=== PATIENT | male | born 1995 | race Two or more races ===

== ENCOUNTER 2018-08-13 23:08 | Emergency (ER) | payer OTHER ==
--- NOTE | 2018-08-13 23:23 | ED ---
GI/ HPI - HPI Summary HPI Summary: A 23 y/o male presents to [facility] with a chief complaint of vomiting today. At triage he rated his pain as a 6/10 in severity. He said that his stomach bloated at 15:30. The feeling went away but after eating the patient felt the stomach bloating and vomited with some heart burn. He felt fine in the morning. 1.5 years ago he had similar symptoms and went to PCP in [place] and said that it may be an ulcer in the duodenum and was given a prescription for Nexium. After several weeks his symptoms were alleviated. He took Nexium today. He denies any current pain, nausea or urinary symptoms. He denies any abdominal SHx. - History of Current Complaint Chief Complaint: EDNauseaVomitDiarrh Time Seen by Provider: 08/13/18 23:18 Stated Complaint: STOMACH BLOATING PER PT Hx Obtained From: Patient Onset/Duration: Started Hours Ago, Still Present Timing: Intermittent, Lasting Hours Severity: Moderate Current Severity: Moderate Pain Intensity: 6 - out of 10 Location of Pain: None - Allergy/Home Medications Allergies/Adverse Reactions: Allergies Allergy/AdvReac Type Severity Reaction Status Date / Time No Known Allergies Allergy Verified 08/13/18 23:12 PMH/Surg Hx/FS Hx/Imm Hx Sensory History: Reports: Hx Contacts or Glasses Denies: Hx Deafness Opthamlomology History: Reports: Hx Contacts or Glasses EENT History: Denies: Hx Deafness Infectious Disease History: No Infectious Disease History: Denies: Traveled Outside the [place] in Last 30 Days - Family History Known Family History: Positive: Diabetes Negative: Hypertension - Social History Alcohol Use: None Hx Substance Use: No Substance Use Type: Reports: None Hx Tobacco Use: No Smoking Status (MU): Never Smoked Tobacco Review of Systems Negative: Fever Positive: Vomiting. Negative: Abdominal Pain, Nausea Positive: no symptoms reported All Other Systems Reviewed And Are Negative: Yes Physical Exam - Summary Physical Exam Summary: Appearance: Well-appearing, Well-nourished, lying in bed comfortably Skin: Warm, dry, no obvious rash Eyes: sclera anicteric, no conjunctival pallor ENT: mucous membranes moist, pharynx appears normal Neck: Supple, nontender Respiratory: Clear to auscultation, no signs of respiratory distress Cardiovascular: Normal S1, S2. No murmurs. Normal distal pulses in tibial and radial bilaterally. Abdomen: Soft, nontender, normal active bowel sounds present Musculoskeletal: Normal, Strength/ROM Intact Neurological: A&Ox3, awake and alert, mentation is normal, speech is fluent and appropriate Psychiatric: affect is normal, does not appear anxious or depressed Triage Information Reviewed: Yes Vital Signs On Initial Exam: Initial Vitals Temp Pulse Resp BP Pulse Ox 98.5 F 80 18 132/74 99 08/13/18 23:09 08/13/18 23:09 08/13/18 23:09 08/13/18 23:09 08/13/18 23:09 Vital Signs Reviewed: Yes Diagnostics - Vital Signs Vital Signs Temp Pulse Resp BP Pulse Ox 08/13/18 23:09 98.5 F 80 18 132/74 99 - Laboratory Lab Statement: Any lab studies that have been ordered have been reviewed, and results considered in the medical decision making process. GIGU Course/Dx - Course Course Of Treatment: A 23 y/o male presents to [facility] with a chief complaint of vomiting today. The physical exam was unremarkable. In the ED course the patient was given Zofran SL, Lidocaine PO and Maalox plus PO. The patient will be discharged home with a prescription for Zofran and follow up with [facility]. The patient is agreeable with this plan. - Diagnoses Provider Diagnoses: Gastritis Discharge - Sign-Out/Discharge Documenting (check all that apply): Patient Departure - DC Patient Received Moderate/Deep Sedation with Procedure: No - Discharge Plan Condition: Good Disposition: HOME Prescriptions: Ondansetron ODT TAB* [Zofran 4 MG Odt TAB*] 8 mg PO Q6H PRN #12 tab.odt PRN Reason: Nausea Patient Education Materials: Gastritis (ED) Referrals: [facility] [Outside] - 4 Days Additional Instructions: Go ahead and take your nexium. If you're doing ok after a few days, you can stop it. Keep to a light diet over the weekend, and take the zofran as needed for nausea. - Billing Disposition and Condition Condition: GOOD Disposition: Home - Attestation Statements Document Initiated by Scribe: Yes Documenting Scribe: Landon Wellington Provider For Whom Scribe is Documenting (Include Credential): Kyle Ferris MD Scribe Attestation: ILandon, scribed for Kyle Ferris MD on 08/14/18 at 0158. Scribe Documentation Reviewed: Yes Provider Attestation: The documentation as recorded by the scribe, Landon Wellington accurately reflects the service I personally performed and the decisions made by me, Kyle Ferris MD Status of Scribe Document: Viewed
[2018-08-13] MEDS ORDERED: Ondansetron ODT TAB* 4 MG SL ONE (23:29)
[2018-08-13] MEDS ORDERED: Lidocaine 2% VISCOUS* 15 ML UDC PO ONE (23:32)
[2018-08-13] MEDS ORDERED: Al Hydrox/Mg Hydrox/Simet LIQ* 30 ML UDC PO ONE (23:32)
[2018-08-13] MEDS ORDERED: Lidocaine 2% VISCOUS* 15 ML UDC ONE (23:34)
[2018-08-13] MEDS ORDERED: Al Hydrox/Mg Hydrox/Simet LIQ* 30 ML UDC ONE (23:34)
[2018-08-14 00:16] VITALS: BP 118/76
== END 2018-08-14 00:12 | disposition home or self-care (01) ==
LOC: ED 23:08
DX: K29.70 Gastritis, unspecified, without bleeding (principal)
CPT/HCPCS: 99283; A9270-GY